=== PATIENT | male | born 1965 | race Hispanic/Latino ===

== ENCOUNTER 2023-06-17 10:03 | Emergency (ER) | payer BC ==
[~2023-06-17] VITALS: Ht 170.2 cm; Wt 108.9 kg
[2023-06-17] MEDS: 0.9%NACL 1000ML 1,983 ML IV ONE (10:56)
[2023-06-17] MEDS: LACTATED RINGERS 1000ML 1,000 ML IV ONE (10:56)
[2023-06-17] MEDS: FAMOTIDINE 20MG VIAL IV ONE (10:57)
[2023-06-17] MEDS: ONDANSETRON 4MG INJ IVP ONE (10:57)
[2023-06-17] MEDS: ACETAMINOPHEN 325 MG TAB PO ONE (10:57)
[2023-06-17 11:01] LABS: BASOPHILS # (AUTO) 0.08 K/uL (0.00-0.20); BASOPHILS % (AUTO) 0.7 % (0.0-5.0); EOSINOPHILS # (AUTO) 0.03 K/uL (0.00-0.70); EOSINOPHILS % (AUTO) 0.3 % (0.0-8.0); HEMATOCRIT 39.5 % (42-54); IMMATURE GRANULOCYTE ABSOLUTE 0.18 K/uL (0-1); LYMPHOCYTES # (AUTO) 4.9 K/uL (1.0-4.8); LYMPHOCYTES % (AUTO) 42.8 % (21.0-51.0); MEAN CORPUSCULAR HEMOGLOBIN 30.1 pg (27.0-33.0); MEAN CORPUSCULAR HGB CONC 33.9 g/dL (32.0-36.0); MEAN CORPUSCULAR VOLUME 88.8 fL (79-99); MONOCYTES # (AUTO) 1.1 K/uL (0.1-1.0); MONOCYTES % (AUTO) 9.9 % (3.0-13.0); NEUTROPHILS # (AUTO) 5.1 K/uL (1.8-7.7); NEUTROPHILS % (AUTO) 44.7 % (40.0-77.0); PLATELET COUNT (AUTO) 346 K/uL (130-400); RED BLOOD CELL COUNT(AUTO) 4.45 MIL/uL (4.50-6.20); RED CELL DISTRIBUTION WIDTH 13.1 % (11.0-15.5); WHITE BLOOD COUNT (AUTO) 11.4 K/uL (4.8-10.8)
[2023-06-17 11:18] LABS: APPEARANCE,URINE CLEAR (CLEAR); BILIRUBIN,URINE NEGATIVE (NEGATIVE); COLOR,URINE LIGHT-YELLOW (YELLOW); GLUCOSE, URINE (UA) NEGATIVE (NEGATIVE); KETONES,URINE NEGATIVE (NEGATIVE); LEUKOCYTE ESTERASE ,URINE NEGATIVE Leu/uL (NEGATIVE); NITRATE,URINE NEGATIVE (NEGATIVE); OCCULT BLOOD,URINE NEGATIVE (NEGATIVE); PH,URINE 7.5 (5.0-8.0); PROTEIN,URINE 30 mg/dL (NEGATIVE); UROBILINOGEN,URINE 0.2 mg/dL (0.2-1.0)
[2023-06-17 11:19] LABS: ADD UA MICROSCOPIC YES
[2023-06-17 11:23] LABS: SQUAMOUS EPITHELIAL CELL,UR RARE /HPF (0-2); WBC,URINE 0-1 /HPF (0-1)
[2023-06-17 11:26] LABS: ALBUMIN 3.1 g/dL (3.5-5.0); BILIRUBIN,TOTAL 0.8 mg/dL (0.2-1.0); CREATININE 1.1 mg/dL (0.5-1.5); TOTAL PROTEIN, SERUM 6.8 g/dL (6.0-8.3)
[2023-06-17 11:27] LABS: POTASSIUM 2.9 mmol/L (3.5-5.1)
[2023-06-17] MEDS ORDERED: IOHEXOL 350 MG/ML 100ML INFUS..BTL IV ONE (11:39)
[2023-06-17 11:44] LABS: INR 0.98 (0.85-1.15); PROTHROMBIN TIME 11.4 SEC (9.6-11.6)
[2023-06-17 11:45] LABS: PARTIAL THROMBOPLASTIN TIME 29.1 SEC (26.3-35.5)
[2023-06-17] MEDS: POTASSIUM BICARB/CIT AC 25 MEQ TABLET.EFF PO ONE (11:54)
[2023-06-17 12:07] LABS: BAND NEUTROPHILS % (MANUAL) 2 % (0-2); LYMPHOCYTES % (MANUAL) 38 % (22-44); MAN.DIFF COMMENT-IMPRESSION MANUAL DIFFERENTIAL; MONOCYTES % (MANUAL) 11 % (2-9); SEGMENTED NEUTROPHILS % 49 % (40-70); TOTAL CELLS COUNTED 100
[2023-06-17 12:08] LABS: PLATELET MORPHOLOGY COMMENT ADEQUATE; WBC MORPHOLOGY REACTIVE LYMPHS 2+
[2023-06-17 12:10] VITALS: TEMP 98.9
[2023-06-17 14:34] LABS: COVID19 (SARS ANTIGEN RAPID) PRESUMPTIVE NEGATIVE (NEGATIVE); INFLUENZA TYPE A Negative For Type A (NEGATIVE); INFLUENZA TYPE B Negative For Type B (NEGATIVE)
[2023-06-17] MEDS ORDERED: POTA25TA35 PO (15:14)
[2023-06-17 15:35] VITALS: BP 144/71; PULSE 89; RESP 12; O2SAT 96
== END 2023-06-17 16:17 | disposition home or self-care (01) ==
LOC: EDH 10:03
DX: B34.9 Viral infection, unspecified (principal); R10.30 Lower abdominal pain, unspecified; E87.6 Hypokalemia; I10 Essential (primary) hypertension; E11.9 Type 2 diabetes mellitus without complications; Z20.822 Contact with and (suspected) exposure to COVID-19; Z90.49 Acquired absence of other specified parts of digestive tract; Z98.890 Other specified postprocedural states
CPT/HCPCS: 99284; 74177; 96374; 96361 ×2; 96375; 87426; 82550; 84484; 80053; 83690; 85025; 85610; 85730; 87040 ×2; 87804 ×2; 83605; 81001; 36415; 93005; J7120; J3490; J7030; J2405; Q9967